=== PATIENT | male | born 1950 | race African-American/Black ===

== ENCOUNTER 2020-09-24 14:50 | Inpatient (IN) | payer MEDICARE ==
[~2020-09-24] VITALS: Ht 193 cm; Wt 131.5 kg
--- NOTE | ~2020-09-24 | OP ---
[facility] [address] [place] [address] OPERATIVE REPORT Name: JASON MOTA Room: [address] ADM IN M.R.#: [id number] Admission: 09/24/20 Attend Phys: Joel Walter Discharge: Date of : 54 Report #: [id number] THIS REPORT FOR: cc: Tomy Davila MD, Anthony MD Kesl, James B. DO ~ PREOPERATIVE DIAGNOSES: 1. Traumatic amputation of right great toe with fracture through proximal phalanx. 2. Partial amputation, second toe with comminuted distal phalanx fracture. POSTOPERATIVE DIAGNOSES: 1. Traumatic amputation of right great toe with fracture through proximal phalanx. 2. Partial amputation, second toe with comminuted distal phalanx fracture. PROCEDURES: 1. Revision with completion of amputation and closure great toe. 2. Partial amputation, second toe. 3. Irrigation and debridement of traumatic amputation great toe, traumatic partial amputation, second toe. SURGEON: Jason Frazier DO BRICK PICKER: Armand Jennings DO ANESTHESIA: General. ANTIBIOTICS: Ancef IV. FLUIDS: 1000 mL lactated Ringer's. ESTIMATED BLOOD LOSS: 50 mL. COMPLICATIONS: None. SPECIMENS: None. DRAINS: None. CONDITION OF PATIENT: Stable to PACU. INDICATIONS FOR PROCEDURE: The patient tripped while mowing the lawn, ran over his foot, amputated off his great toe, presented to the Emergency Department and found to also have a partial amputation of the second toe. Resident all performed a debridement in the ED, but we did feel operative debridement [facility] [address] [place] [address] OPERATIVE REPORT Name: NAKULJASON MACARIO Room: [address] ADM IN M.R.#: [id number] Admission: 09/24/20 Attend Phys: Joel Walter Discharge: Date of : 54 Report #: [id number] thorough would be better for patient went over the plan. He agreed. at bedside and they acknowledging, accepted risks and complications and gave consent to proceed. DESCRIPTION OF PROCEDURE: Marked the right lower extremity in the presence of operative team members. Everyone agreed correct. He was taken back to the operative suite, placed on the table supine, well-padded and secured. General anesthetic administered. A well-padded tourniquet was placed proximally on the right lower extremity was not used during any time. The right lower extremity was sterilely prepped and draped in standard fashion. Timeout was performed indicating correct patient, procedure, site, antibiotics and implants present and all team members agreed. We performed a thorough excisional debridement that was down to bone and including bone that partial remaining aspect of the proximal phalanx had contamination and was significantly splintered, was also not allowing for skin closure. We therefore rongeured this down and got to the metatarsal head. Once we had thoroughly debrided that out removing foreign body, there did not remain any obvious foreign body. Findings were evidence of any obvious gross contamination after a thorough debridement. Same was performed for the partial amputation of the second toe. We then irrigated with 9 liters normal saline ____ tubing, reinspected. No obvious evidence of foreign body or contamination tissue appeared to be healthy with good bleeding. We therefore changed gloves and discarded any instruments used and began our closure. Closure was with 3-0 nylons in interrupted and mixtures of Allgower-Donati. It should be noted prior to closure we placed vancomycin powder deep. Debriefing was performed confirming procedure, blood loss and that all counts were correct and final. All team members agreed. A well-padded sterile splint and dressings were applied and he was extubated and taken to PACU in stable. POSTOPERATIVE COURSE AND EVALUATION: I did try to find his ; however, the let the nurses know that she was going home and going to bed and did not wish to be disturbed only if there were issues with the surgery. He was resting in PACU with stable vital signs, pain controlled, neurovascularly intact. No signs of DVT. No signs of compartment syndrome. COVID protocol followed at all times. By: 06 Jason Frazier DO /nt
[2020-09-24 14:54] VITALS: BP 179/82
[2020-09-24 15:09] LABS: ABSOLUTE BASOPHILS 0.1 thou/uL (0.0-0.2); ABSOLUTE EOSINOPHILS 0.1 thou/uL (0.0-0.7); ABSOLUTE LYMPHOCYTES 3.4 thou/uL (0.8-5.3); ABSOLUTE MONOCYTES 0.9 thou/uL (0.0-1.2); ABSOLUTE NEUTROPHILS 5.9 thou/uL (1.6-8.1); BASOPHILS 0.9 %; EOSINOPHILS 0.8 %; HEMATOCRIT 45.1 % (42.0-52.0); HEMOGLOBIN 15.2 gm/dL (14.0-18.0); LYMPHOCYTES 32.5 %; MCH 31.7 pg (26.0-34.0); MCHC 33.8 g/dL (28.0-37.0); MCV 93.8 fL (80.0-100.0); MONOCYTES 8.5 %; NUCLEATED RBCS 0 /100WBC; PLATELET COUNT* 272 thou/uL (150-400); POLYS 57.3 %; RBC 4.81 mil/uL (4.50-6.00); RDW-CV 14.7 % (10.5-14.5); WBC 10.4 thou/uL (4.0-11.0)
[2020-09-24 18:28] LABS: CALCIUM 9.5 mg/dL (8.5-10.1); CREATININE 1.5 mg/dL (0.6-1.3); POTASSIUM 3.3 mmol/L (3.5-5.1)
[2020-09-24 18:48] LABS: APTT 25.1 Seconds (25.0-31.3); PROTIME 11.1 Seconds (9.20-11.50)
[2020-09-24 19:21] VITALS: BP 120/66
[2020-09-24] MEDS ORDERED: LOSARTAN POTAS100 MG PO (19:33)
[2020-09-24] MEDS ORDERED: CARDIZEM CD 30300 M1 PO (19:39)
[2020-09-24] MEDS ORDERED: TRIAMTERENE-HC1 EAC3 PO (19:39)
[2020-09-25 00:20] VITALS: BP 141/59
[2020-09-25 04:15] VITALS: BP 142/64
[2020-09-25 07:45] VITALS: BP 127/58
[2020-09-25 11:40] VITALS: BP 105/54
--- NOTE | 2020-09-25 13:37 | EKG ---
[place] [address] ELECTROCARDIOGRAM REPORT Name: JASON MOTA Room: [address] ADM IN .R.#: [id number] Admission: 09/24/20 Attend Phys: Jaleel Sorenson Discharge: Date of : 54 Date of Service: 09/24/20 1835 Report #: [id number] THIS REPORT FOR: //name// [facility] ED Test Date: 2020-09-24 Test Time: 18:35:38 Pat Name: JASON MOTA Department: Room: [facility] Gender: M Charity Fundraiser: TIM : 1950 Requested By: James Graham Order Number: [id number] MD: Bhavik Olivier Measurements Intervals [place] Rate: 54 P: 48 HI: 159 QRS: 40 QRSD: 92 T: 14 QT: 476 QTc: 452 Interpretive Statements Sinus bradycardia Probable left atrial enlargement Borderline ST elevation, anterior leads No previous ECG available for comparison Electronically Signed On 09-25-2020 13:36:46 CDT by Bhavik Olivier [email or web address] <ELECTRONICALLY SIGNED> By: Bhavik Olivier MD, [facility] 09/25/20 1336 1835 1835 Bhavik Olivier MD, [facility] /EPI
[2020-09-25 15:32] VITALS: BP 133/64
[2020-09-25 20:20] VITALS: BP 141/63
[2020-09-26 00:22] VITALS: BP 122/52
[2020-09-26 04:21] LABS: CALCIUM 8.5 mg/dL (8.5-10.1); CREATININE 1.2 mg/dL (0.6-1.3); POTASSIUM 3.3 mmol/L (3.5-5.1)
[2020-09-26 04:25] LABS: ABSOLUTE LYMPHOCYTES 1.4 thou/uL (0.8-5.3); ABSOLUTE MONOCYTES 0.8 thou/uL (0.0-1.2); ABSOLUTE NEUTROPHILS 7.1 thou/uL (1.6-8.1); BASOPHILS 0.2 %; HEMATOCRIT 37.9 % (42.0-52.0); LYMPHOCYTES 14.8 %; MCH 31.1 pg (26.0-34.0); MCHC 33.3 g/dL (28.0-37.0); MCV 93.3 fL (80.0-100.0); MONOCYTES 8.8 %; MPV 10.2 fl. (7.2-11.1); NUCLEATED RBCS 0 /100WBC; PLATELET COUNT* 211 thou/uL (150-400); POLYS 76.2 %; RBC 4.06 mil/uL (4.50-6.00); RDW-CV 14.7 % (10.5-14.5); WBC 9.3 thou/uL (4.0-11.0)
[2020-09-26 04:34] LABS: HEMOGLOBIN 12.6 gm/dL (14.0-18.0)
[2020-09-26 08:00] VITALS: BP 143/72
[2020-09-26] MEDS ORDERED: ASPIRIN325 PO (09:31)
[2020-09-26] MEDS ORDERED: NORCO5 PO (09:31)
[2020-09-26 09:43] VITALS: BP 122/52
[2020-09-26 12:02] VITALS: BP 122/52
[2020-09-26 13:26] VITALS: BP 122/52
== END 2020-09-26 13:05 | disposition home or self-care (01) | DRG 908 ==
LOC: M.ERS 14:50 → M.ORTHSURG 18:18 → M.TBA-ER 18:18 → M.ORTHSURG 23:27
PROVIDERS: Emergency Medicine Emergency Medical Services; Internal Medicine; ADMIT Internal Medicine; ATTEND Internal Medicine
PROC: 0Y6R0Z3 Detachment at Right 2nd Toe, Low, Open Approach (ICD-10-PCS; principal; 2020-09-25)
PROC: 0QBN0ZZ Excision of Right Metatarsal, Open Approach (ICD-10-PCS; 2020-09-25)
PROC: 0QCN0ZZ Extirpation of Matter from Right Metatarsal, Open Approach (ICD-10-PCS; 2020-09-25)
DX: S98.111A Complete traumatic amputation of right great toe, initial encounter (principal); N17.9 Acute kidney failure, unspecified; I10 Essential (primary) hypertension; E86.0 Dehydration; S98.141A Partial traumatic amputation of one right lesser toe, initial encounter; Z20.822 Contact with and (suspected) exposure to COVID-19; W31.89XA Contact with other specified machinery, initial encounter; Y93.89 Activity, other specified; Y92.89 Other specified places as the place of occurrence of the external cause; Y99.8 Other external cause status; Z23 Encounter for immunization